=== PATIENT | male | born 1980 ===

== ENCOUNTER 2021-11-16 19:54 | Emergency (ER) | payer SELFPAY ==
[2021-11-16 21:34] LABS: Absolute Lymphocytes (CBC) 2.6 K/uL (0.7-4.9); Hematocrit 39.1 % (39.6-49.0); Lymphocytes % 44.4 % (15.3-44.8); MPV 6.2 fL (7.6-11.3); RBC Red Blood Cell Count 5.21 M/uL (4.33-5.43)
--- NOTE | 2021-11-16 21:43 | RAD REPORT ---
EXAM DESCRIPTION: RAD - Chest Single View - 11/16/2021 9:32 pm CLINICAL HISTORY: PAIN Chest pain. COMPARISON: Abdomen 1 View (KUB) dated 01/26/2018 FINDINGS: Portable technique limits examination quality. The lungs are grossly clear. The heart is normal in size. No displaced fractures. IMPRESSION: No acute intrathoracic process suspected.
[2021-11-16 21:58] LABS: BUN Blood Urea Nitrogen 4 mg/dL (7-18); Bicarbonate 24 mmol/L (21-32); Glucose Level 99 mg/dL (74-106); Potassium 3.2 mmol/L (3.5-5.1); Sodium Level 126 mmol/L (136-145); Troponin High Sensitivity 14.8 pg/mL (<58.9)
[2021-11-16] MEDS ORDERED: POTASSIUM CL SA 10 MEQ TAB PO ONE (22:26)
[2021-11-16] MEDS ORDERED: NA CHLORIDE 0.9% 1,000 ML ONE (22:26)
--- NOTE | 2021-11-16 22:49 | ER ---
Nurse's Notes [facility] Name: Romeo Chaves Age: 41 yrs Sex: Male : 1980 Arrival Date: 11/16/2021 Time: 19:57 Bed 12 Private MD: Diagnosis: Chest pain, unspecified;Hyponatremia;Hypokalemia Presentation: 11/16 21:00 Chief complaint: Patient states: Chest pain X 2 weeks - past three days it got worse. ld1 Coronavirus screen: At this time, the client does not indicate any symptoms associated with coronavirus-19. Ebola Screen: No symptoms or risks identified at this time. Initial Sepsis Screen: Does the patient meet any 2 criteria? No. Patient's initial sepsis screen is negative. Does the patient have a suspected source of infection? No. Patient's initial sepsis screen is negative. Risk Assessment: Do you want to hurt yourself or someone else? Patient reports no desire to harm self or others. Onset of symptoms was November 16, 2021. 21:00 Method Of Arrival: Ambulatory ld1 21:00 Acuity: SARIKA 3 ld1 Triage Assessment: 21:01 General: Appears in no apparent distress. comfortable, Behavior is calm, cooperative, ld1 appropriate for age. Pain: Complains of pain in chest Pain does not radiate. Pain currently is 2 out of 10 on a pain scale. at worst was 10 out of 10 on a pain scale. Quality of pain is described as stabbing, Pain began 2 weeks. EENT: No signs and/or symptoms were reported regarding the EENT system. Neuro: Level of Consciousness is awake, alert, obeys commands, Oriented to person, place, time, situation, Appropriate for age. Cardiovascular: Capillary refill < 3 seconds Patient's skin is warm and dry. Rhythm is sinus tachycardia. Respiratory: Airway is patent Respiratory effort is even, unlabored, Respiratory pattern is regular, symmetrical. GI: Abdomen is flat, non-distended. : No signs and/or symptoms were reported regarding the genitourinary system. Derm: No signs and/or symptoms reported regarding the dermatologic system. Musculoskeletal: No signs and/or symptoms reported regarding the musculoskeletal system. Historical: - Allergies: 21: No Known Allergies; ld1 - Home Meds: 21:01 Lorazepam Oral [Active]; Clonazepam Oral [Active]; ld1 - PMHx: 21:01 Anxiety; ld1 - PSHx: 21:01 Appendectomy; ld1 - Immunization history:: Adult Immunizations up to date, Client reports having NOT received the Covid vaccine. - Social history:: Smoking status: Reported history of juuling and/or vaping. Patient uses alcohol. Screenin:06 Abuse screen: Denies threats or abuse. Denies injuries from another. Nutritional ld1 screening: No deficits noted. Nutritional screening: No deficits noted. Tuberculosis screening: No symptoms or risk factors identified. Fall Risk None identified. Assessment: 21:06 Reassessment: See triage assessment. ld1 22:29 Reassessment: Patient appears in no apparent distress at this time. Patient and/or ld1 family updated on plan of care and expected duration. Pain level reassessed. Patient is alert, oriented x 3, equal unlabored respirations, skin warm/dry/pink. Patient states feeling better. 23:40 Reassessment: Patient appears in no apparent distress at this time. No changes from ld1 previously documented assessment. Patient denies pain at this time. Vital Signs: 21:00 BP 169 / 108; Pulse 103; Resp 20; Temp 98.3(TE); Pulse Ox 100% on R/A; Weight 97.52 kg; ld1 Height 6 ft. 1 in. (185.42 cm); Pain 1/10; 22:29 BP 145 / 98; Pulse 108; Resp 19; Pulse Ox 100% on R/A; ld1 23:40 BP 139 / 92; Pulse 99; Resp 18; Pulse Ox 100% on R/A; Pain 0/10; ld1 21:00 Body Mass Index 28.37 (97.52 kg, 185.42 cm) ld1 ED Course: 19:57 Patient arrived in ED. ag3 20:51 Nikhil Barba PA is PHCP. jr8 20:51 Zackary Gallo MD is Attending Physician. jr8 21:00 Rachael Sage, EMMA is Primary Nurse. ld1 21:01 Triage completed. ld1 21:01 Arm band placed on right wrist. ld1 21:06 Patient has correct armband on for positive identification. Placed in gown. Bed in low ld1 position. Call light in reach. Side rails up X2. athletic monitor on. Pulse ox on. NIBP on. Door closed. Noise minimized. Warm blanket given. 21:06 No provider procedures requiring assistance completed. Patient maintains SpO2 ld1 saturation greater than 95% on room air. 21:34 XRAY Chest (1 view) In Process Unspecified. EDMS 22:48 Emeka Gallegos MD is Referral Physician. jr8 23:40 IV discontinued, intact, bleeding controlled, No redness/swelling at site. ld1 Administered Medications: 22:28 Drug: NS 0.9% 1000 ml Route: IV; Rate: 1000 ml; Site: right antecubital; ld1 22:28 Drug: Potassium Chloride 40 mEq Route: PO; ld1 Outcome: 22:48 Discharge ordered by . jr8 23:40 Discharged to home ambulatory, with family. ld1 23:40 Condition: stable 23:40 Discharge instructions given to patient, family, Instructed on discharge instructions, follow up and referral plans. Demonstrated understanding of instructions, follow-up care. 23:40 Patient left the ED. ld1 Signatures: Dispatcher [employer] EDMT Nikhil Barba PA PA jr8 Rosina Petty ag3 Rachael Sage, RN RN ld1
--- NOTE | 2021-11-16 22:49 | EDPHYS ---
Physician Documentation [facility] Name: Romeo Chaves Age: 41 yrs Sex: Male : 1980 Arrival Date: 11/16/2021 Time: 19:57 Bed 12 Private MD: ED Physician Zackary Gallo HPI: 11/16 22:20 This 41 yrs old Male presents to ER via Ambulatory with complaints of Chest Pain. jr8 22:20 Onset: The symptoms/episode began/occurred gradually, 6 day(s) ago. Associated signs jr8 and symptoms: Pertinent positives: shortness of breath. Modifying factors: The patient symptoms are alleviated by nothing, the patient symptoms are aggravated by nothing. The patient has not experienced similar symptoms in the past. The patient has not recently seen a physician. Historical: - Allergies: 21:01 No Known Allergies; ld1 - Home Meds: 21:01 Lorazepam Oral [Active]; Clonazepam Oral [Active]; ld1 - PMHx: 21:01 Anxiety; ld1 - PSHx: 21:01 Appendectomy; ld1 - Immunization history:: Adult Immunizations up to date, Client reports having NOT received the Covid vaccine. - Social history:: Smoking status: Reported history of juuling and/or vaping. Patient uses alcohol. ROS: 22:20 Eyes: Negative for injury, pain, redness, and discharge, ENT: Negative for injury, jr8 pain, and discharge, Neck: Negative for injury, pain, and swelling, Abdomen/GI: Negative for abdominal pain, nausea, vomiting, diarrhea, and constipation, Back: Negative for injury and pain, MS/Extremity: Negative for injury and deformity, Skin: Negative for injury, rash, and discoloration, Neuro: Negative for headache, weakness, numbness, tingling, and seizure. 22:20 Cardiovascular: Positive for chest pain, Negative for edema, orthopnea, palpitations, paroxysmal nocturnal dyspnea. 22:20 Respiratory: Positive for shortness of breath. Exam: 22:20 ENT: Nares patent. No nasal discharge, no septal abnormalities noted. Tympanic jr8 membranes are normal and external auditory canals are clear. Oropharynx with no redness, swelling, or masses, exudates, or evidence of obstruction, uvula midline. Mucous membranes moist. Neck: Trachea midline, no thyromegaly or masses palpated, and no cervical lymphadenopathy. Supple, full range of motion without nuchal rigidity, or vertebral point tenderness. No Meningismus. Chest/axilla: Normal chest wall appearance and motion. Nontender with no deformity. No lesions are appreciated. Cardiovascular: Regular rate and rhythm with a normal S1 and S2. No gallops, murmurs, or rubs. Normal PMI, no JVD. No pulse deficits. Respiratory: Lungs have equal breath sounds bilaterally, clear to auscultation and percussion. No rales, rhonchi or wheezes noted. No increased work of breathing, no retractions or nasal flaring. Abdomen/GI: Soft, non-tender, with normal bowel sounds. No distension or tympany. No guarding or rebound. No evidence of tenderness throughout. Back: No spinal tenderness. No costovertebral tenderness. Full range of motion. Skin: Warm, dry with normal turgor. Normal color with no rashes, no lesions, and no evidence of cellulitis. MS/ Extremity: Pulses equal, no cyanosis. Neurovascular intact. Full, normal range of motion. Neuro: Awake and alert, GCS 15, oriented to person, place, time, and situation. Cranial nerves II-XII grossly intact. Motor strength 5/5 in all extremities. Sensory grossly intact. 22:20 Constitutional: The patient appears alert, awake, anxious. Vital Signs: 21:00 BP 169 / 108; Pulse 103; Resp 20; Temp 98.3(TE); Pulse Ox 100% on R/A; Weight 97.52 kg; ld1 Height 6 ft. 1 in. (185.42 cm); Pain 1/10; 22:29 BP 145 / 98; Pulse 108; Resp 19; Pulse Ox 100% on R/A; ld1 23:40 BP 139 / 92; Pulse 99; Resp 18; Pulse Ox 100% on R/A; Pain 0/10; ld1 21:00 Body Mass Index 28.37 (97.52 kg, 185.42 cm) ld1 MDM: 20:51 Patient medically screened. jr8 22:47 Data reviewed: vital signs, nurses notes, lab test result(s), EKG, radiologic studies, jr8 plain films. Data interpreted: Pulse oximetry: on room air is 100 %. Interpretation: normal. Counseling: I had a detailed discussion with the patient and/or guardian regarding: the historical points, exam findings, and any diagnostic results supporting the discharge/admit diagnosis, lab results, radiology results, the need for outpatient follow up, a family practitioner, to return to the emergency department if symptoms worsen or persist or if there are any questions or concerns that arise at home. Special discussion: Based on the patient's history, exam, and Dx evaluation, there is no indication for emergent intervention or inpatient Tx. It is understood by the patient/guardian that if the Sx's persist or worsen they need to return immediately for re-evaluation. ED course: Patient moderately hyponatremic and with hyperkalemia. Drinks and vapes per patient. Counseled him on excessive drinking.. 11/16 21:07 Order name: Basic Metabolic Panel; Complete Time: 22:19 11/16 21:07 Order name: CBC with Diff; Complete Time: 22:19 11/16 21:07 Order name: Troponin HS; Complete Time: 22:19 11/16 21:07 Order name: XRAY Chest (1 view); Complete Time: 22:19 11/16 21:07 Order name: EKG; Complete Time: 21:07 11/16 21:07 Order name: Cardiac monitoring; Complete Time: 21:07 11/16 21:07 Order name: EKG - Nurse/Tech; Complete Time: 21:07 11/16 21:07 Order name: IV Saline Lock; Complete Time: 21:10 11/16 21:07 Order name: Labs collected and sent; Complete Time: 21:10 11/16 21:07 Order name: O2 Per Protocol; Complete Time: 21:11/16 21:07 Order name: O2 Sat Monitoring; Complete Time: 21: ld Administered Medications: 22:28 Drug: NS 0.9% 1000 ml Route: IV; Rate: 1000 ml; Site: right antecubital; ld1 22:28 Drug: Potassium Chloride 40 mEq Route: PO; ld1 Disposition Summary: 11/16/21 22:48 Discharge Ordered Location: Home jr8 Problem: new jr8 Symptoms: have improved jr8 Condition: Stable jr8 Diagnosis - Chest pain, unspecified jr8 - Hyponatremia jr8 - Hypokalemia jr8 Followup: jr8 - With: Emeka Gallegos MD - When: 2 - 3 days - Reason: Recheck today's complaints, Continuance of care, Re-evaluation by your physician Discharge Instructions: - Discharge Summary Sheet jr8 - Nonspecific Chest Pain, Adult jr8 - Hyponatremia jr8 - Hypokalemia jr8 Forms: - Medication Reconciliation Form jr8 - Thank You Letter jr8 - Antibiotic Education jr8 - Prescription Opioid Use jr8 Addendum: 11/18/2021 06:39 Co-signature as Attending Physician, Zackary Gallo MD I agree with the assessment and c garduno plan of care. Signatures: Dispatcher [employer] EDMS Zackary Gallo MD MD cha Roszak, Josh, PA PA jr8 Rachael Sage, RN RN ld1
[2021-11-17 01:38] VITALS: TEMP 98.3; O2SAT 100
[2021-11-17 01:41] VITALS: BP 139/92
--- NOTE | 2021-11-17 07:53 | EKG ---
Test Date: 2021-11-16 Test Time: 20:54:10 Auto Body Painter: MATHEW MEASUREMENT RESULTS: Intervals: Rate: 104 FL: 174 QRSD: 94 QT: 350 QTc: 460 Adrian: P: 74 FL: 174 QRS: 41 T: 11 INTERPRETIVE STATEMENTS: Sinus tachycardia Otherwise normal ECG Compared to ECG 09/30/2006 16:10:23 Sinus rhythm no longer present Atrial premature complex(es) no longer present Right-axis deviation no longer present Electronically Signed On 11-17-21 07:52:30 CDT by Emeka Gallegos
== END 2021-11-16 23:40 | disposition home or self-care (01) ==
LOC: ER 19:54
DX: E87.6 Hypokalemia (principal); E87.1 Hypo-osmolality and hyponatremia; F41.9 Anxiety disorder, unspecified
CPT/HCPCS: 36415; 71045; 80048; 84484; 85025; 93005; 99284; J7030